=== PATIENT | female | born 1955 | race Caucasian/White ===

== ENCOUNTER 2016-09-29 12:39 | Emergency (ER) | payer OTHER ==
[~2016-09-29] VITALS: Ht 162.6 cm; Wt 66.0 kg
[~2016-09-29 12:39] MED LIST: ACET325T45 PO; AMLO-147 PO; AMOX1TAB10 PO; BENA20TA48 PO; CLON0.5T4 PO; FOLI-49 PO; HYDR200T39 PO; IBUP-1542 PO; LEFL20TA PO; OMEP40CA6 PO
[2016-09-29 12:51] VITALS: Ht 162.6 cm; Wt 66.0 kg
[2016-09-29 15:46] LABS: BASOPHILS % 0.7 % (0.0-2.0); EOSINOPHILS # 0.2 10^3/ul (0.0-0.5); EOSINOPHILS % 4.3 % (0.0-7.0); HEMATOCRIT 34.8 % (37.0-47.0); HEMOGLOBIN 11.6 g/dl (12.0-16.0); LYMPHOCYTES # 1.4 10^3/ul (0.8-2.9); LYMPHOCYTES % 26.6 % (15.0-51.0); MEAN CORPUSCULAR HEMOGLOBIN 30.7 pg (29.0-33.0); MEAN CORPUSCULAR HGB CONC 33.5 g/dl (32.0-37.0); MEAN CORPUSCULAR VOLUME 91.5 fl (82.0-101.0); MEAN PLATELET VOLUME 8.7 fl (7.4-10.4); MONOCYTE # 0.5 10^3/ul (0.3-0.9); MONOCYTES % 10.7 % (0.0-11.0); NEUTROPHIL # 2.9 10^3/ul (1.6-7.5); NEUTROPHILS % 57.7 % (39.0-77.0); PLATELET COUNT 261 10^3/UL (140-440); RED CELL DISTRIBUTION WIDTH 14.1 % (11.5-14.5); UNCORRECTED WBC 5.1 10^3/ul (4.8-10.8); WHITE BLOOD COUNT 5.1 10^3/ul (4.8-10.8)
[2016-09-29 15:47] LABS: CONDITION 1
[2016-09-29 15:51] LABS: INR 0.92; PARTIAL THROMBOPLASTIN TIME 28.2 Sec (25.0-35.0); PROTIME 12.4 Sec (12.2-14.2)
[2016-09-29 15:53] LABS: ALBUMIN 4.3 g/dl (3.3-4.9); POTASSIUM 4.6 mmol/L (3.5-5.1)
[2016-09-29 15:55] LABS: CREATININE 0.59 mg/dl (0.44-1.00)
[2016-09-29 15:56] LABS: ALBUMIN/GLOBULIN RATIO 1.1; BILIRUBIN,INDIRECT 0.2 mg/dl (0-1.1); BILIRUBIN,TOTAL 0.2 mg/dl (0.2-1.3); TOTAL PROTEIN 8.2 g/dl (6.1-8.1)
[2016-09-29] MEDS ORDERED: IBUP400T22 PO (17:46)
[2016-09-29 18:12] VITALS: BP 123/65; PULSE 79; RESP 18; TEMP 98.3
--- NOTE | 2016-09-30 20:22 | ERD ---
ER Documentation Chief Complaint Date/Time DATE: 09/30/16 TIME: 20:10 Chief Complaint SORE THROAT,RIGHT ARMPIT BRUISE HPI This is a 60 year old female presenting to ER for sore throat and nasal congestion x 2 days. Patient states she has pain with swallowing. No difficulty swallowing, muffled voice or drooling. No wheezing. No earache, headache, chest pain, difficulty breathing or shortness of breath. Patient also presents with chronic rash. Patient has lesions to right armpit, left palm , mid-forehead and chin. Patient stats the lesions are itchy in nature and non- painful. No weeping or drainage. Lesions have been present for 10 years. Patient has history of Rheumatoid arthritis and recently started on Enbrel 2 months ago. ROS All systems reviewed and are negative except as per history of present illness. Medications Home Meds Active Scripts Ibuprofen* (Motrin*) 400 Mg Tab, 400 MG PO Q6, #10 TAB Prov:SULAIMAN CALVERT RN LPN CNA 09/29/16 Ibuprofen* (Motrin*) 600 Mg Tab, 600 MG PO Q8 for 4 Days, #30 TAB Prov:AMRIK SANTAAN, RN LPN CNA 07/23/16 Reported Medications Omeprazole* (Omeprazole*) 40 Mg Capsule.dr, 40 MG PO DAILY, #30 CAP 02/10/16 Leflunomide* (Arava*) 20 Mg Tablet, 20 MG PO DAILY, TAB 02/10/16 Amox Tr/Potassium Clavulanate (Amox Tr-K Clv 875-125 Mg Tab) 1 Tab Tablet, 1 TAB PO BID, #20 TAB PT STARTED ON 02-08-16 02/10/16 Folic Acid* (Folic Acid*) 1 Mg Tablet, 1 MG PO DAILY, TAB 02/10/16 Hydroxychloroquine Sulfate* (Hydroxychloroquine Sulfate*) 200 Mg Tablet, 200 MG PO BID, TAB 02/10/16 Acetaminophen* (Acetaminophen*) 325 Mg Tablet, 325 MG PO Q4H Y for PAIN AND OR ELEVATED TEMP, #30 TAB 02/10/16 Clonazepam* (Clonazepam*) 0.5 Mg Tablet, 0.5 MG PO QHS, TAB 02/10/16 Benazepril Hcl* (Benazepril Hcl*) 20 Mg Tablet, 20 MG PO QAM, #30 TAB 02/10/16 Amlodipine Besylate* (Amlodipine Besylate*) 10 Mg Tablet, 10 MG PO QPM, #30 TAB 02/10/16 Allergies Allergies: Coded Allergies: No Known Allergy (Unverified , 08/15/15) PMhx/Soc History of Surgery: Yes (HYSTERECTOMY, CHOLECYSTECTOMY) Anesthesia Reaction: No Hx Neurological Disorder: No Hx Respiratory Disorders: No Hx Cardiac Disorders: Yes (HTN) Hx Psychiatric Problems: No Hx Miscellaneous Medical Probl: Yes (BORDERLINE ANEMIC) Hx Alcohol Use: No Hx Substance Use: No Hx Tobacco Use: No Smoking Status: Never smoker Physical Exam Vitals Vital Signs Date Time Temp Pulse Resp B/P Pulse Ox O2 Delivery O2 Flow Rate FiO2 09/29/16 18:12 98.3 79 18 123/65 98 Room Air 09/29/16 12:51 98.3 78 18 130/67 98 Physical Exam Const: NAD, alert Head: Atraumatic Eyes: Normal Conjunctiva ENT: Normal External Ears, Nose and Mouth. No erythema or exudate to posterior pharynx. TMs normal bilaterally. Neck: Full range of motion..~ No meningismus. No lymphadenopathy Resp: Clear to auscultation bilaterally. No wheezing, rhonchi or crackles. Cardio: Regular rate and rhythm, no murmurs Abd: Soft, non tender, non distended. Normal bowel sounds Skin: There are dark purple and erythematous lesions on the forehead, 1 dark purple erythematous site on the left palm as well as under her right axilla. No petechiae, no purpura, no vesicle formation, no induration, no surrounding erythema, no purulent discharge. Back: No midline or flank tenderness Ext: No cyanosis, or edema Neur: Awake and alert Psych: Normal Mood and Affect Result Diagram: 09/29/16 1525 09/29/16 1525 Results 24 hrs Laboratory Tests Test 09/29/16 15:25 Activated Partial Thromboplast Time 28.2Sec Alanine Aminotransferase (ALT/SGPT) 25IU/L Albumin 4.3g/dl Albumin/Globulin Ratio 1.10 Alkaline Phosphatase 104IU/L Anion Gap 18 Aspartate Amino Transf (AST/SGOT) 27IU/L Basophils # 0.010^3/ul Basophils % 0.7% Blood Urea Nitrogen 14mg/dl Calcium Level 9.0mg/dl Carbon Dioxide Level 28mmol/L Chloride Level 103mmol/L Creatinine 0.59mg/dl Direct Bilirubin 0.00mg/dl Eosinophils # 0.210^3/ul Eosinophils % 4.3% Globulin 3.90g/dl Glucose Level 82mg/dl Hematocrit 34.8% Hemoglobin 11.6g/dl INR International Normalized Ratio 0.92 Indirect Bilirubin 0.2mg/dl Lymphocytes # 1.410^3/ul Lymphocytes % 26.6% Mean Corpuscular Hemoglobin 30.7pg Mean Corpuscular Hemoglobin Concent 33.5g/dl Mean Corpuscular Volume 91.5fl Mean Platelet Volume 8.7fl Monocytes # 0.510^3/ul Monocytes % 10.7% Neutrophils # 2.910^3/ul Neutrophils % 57.7% Nucleated Red Blood Cells # 0.010^3/ul Nucleated Red Blood Cells % 0.0/100WBC Platelet Count 78755^3/UL Potassium Level 4.6mmol/L Prothrombin Time 12.4Sec Prothrombin Time Ratio 1.0 Red Blood Count 3.8010^6/ul Red Cell Distribution Width 14.1% Sodium Level 144mmol/L Total Bilirubin 0.2mg/dl Total Protein 8.2g/dl White Blood Count 5.110^3/ul Procedures/MDM ED course Patient was stable throughout ED course and informed of any lab results. Laboratory CBC no severe bacteremia or anemia. CMP no severe electrolyte abnormality INR 0.92 PT 12,4 PTT 28.2 MDM: 60 year old female presents to ER for sore throat x 2 days and chronic rash x 10 years. Patient states she has pain with swallowing. No signs of difficulty swallowing or respiratory distress. Normal vital signs. Labs are unremarkable. Low suspicion for DIC or ITP. Low suspicion for hemorrhage or severe anemia. This is a chronic rash per patient and she has a history of rheumatoid arthritis so rash is likely rheumatologic in nature. Patient is stable and appropriate for outpatient management. Patient will be discharged with prescription for ibuprofen. 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 Return to ED for any new or worsening symptoms. Patient verbalizes understanding. All questions answered at discharge. Departure Diagnosis: Primary Impression: Sore throat Additional Impression: Dermatitis Condition: Stable Patient Instructions: Self-Care for Sore Throats Referrals: ROBERT QUEZADA MD (PCP) [facility] YOU HAVE RECEIVED A MEDICAL SCREENING EXAM AND THE RESULTS INDICATE THAT YOU DO NOT HAVE A CONDITION THAT REQUIRES URGENT TREATMENT IN THE EMERGENCY DEPARTMENT. FURTHER EVALUATION AND TREATMENT OF YOUR CONDITION CAN WAIT UNTIL YOU ARE SEEN IN YOUR DOCTORS OFFICE WITHIN THE NEXT 1-2 DAYS. IT IS YOUR RESPONSIBILITY TO MAKE AN APPOINTMENT FOR FOLOW-UP CARE. IF YOU HAVE A PRIMARY DOCTOR --you should call your primary doctor and schedule an appointment IF YOU DO NOT HAVE A PRIMARY DOCTOR YOU CAN CALL OUR PHYSICIAN REFERRAL HOTLINE AT IF YOU CAN NOT AFFORD TO SEE A PHYSICIAN YOU CAN CHOSE FROM THE FOLLOWING [facility] [address] [facility]. [facility] [address]. [facility] [address] [facility] [address] [facility] [address] [facility]. [facility] [address] [facility]. [facility] YOU HAVE RECEIVED A MEDICAL SCREENING EXAM AND THE RESULTS INDICATE THAT YOU DO NOT HAVE A CONDITION THAT REQUIRES URGENT TREATMENT IN THE EMERGENCY DEPARTMENT. FURTHER EVALUATION AND TREATMENT OF YOUR CONDITION CAN WAIT UNTIL YOU ARE SEEN IN YOUR DOCTORS OFFICE WITHIN THE NEXT 1-2 DAYS. IT IS YOUR RESPONSIBILITY TO MAKE AN APPOINTMENT FOR FOLOW-UP CARE. IF YOU HAVE A PRIMARY DOCTOR --you should call your primary doctor and schedule and appointment IF YOU DO NOT HAVE A PRIMARY DOCTOR YOU CAN CALL OUR PHYSICIAN REFERRAL HOTLINE AT . IF YOU CAN NOT AFFORD TO SEE A PHYSICIAN YOU CAN CHOSE FROM THE FOLLOWING [facility], [facility] INSTITUTIONS: [facility] [address] [place] [address] [facility] [address] [place] [address] [facility] [place] [address] [place] [address] Additional Instructions: Call your primary care doctor TOMORROW for an appointment during the next 2-3 days.See the doctor sooner or return here if your condition worsens before your appointment time. Return to ED for any high fever, chest pain, difficulty breathing, shortness breath, wheezing, vomiting, diarrhea, abdominal pain or any new or worsening symptoms. SULAIMAN CALVERT NP Sep 30, 2016 20:22
== END 2016-09-29 18:14 | disposition home or self-care (01) ==
LOC: FTE 12:39
DX: J02.9 Acute pharyngitis, unspecified (principal); L25.9 Unspecified contact dermatitis, unspecified cause; I10 Essential (primary) hypertension
CPT/HCPCS: 80053; 85025; 85610; 85730; Z7502; 99283

== ENCOUNTER 2017-06-25 13:03 | Emergency (ER) | END 2017-06-25 18:32 | disposition home or self-care (01) | DX: M79.605 Pain in left leg (principal); M79.604 Pain in right leg; M15.9 Polyosteoarthritis, unspecified; I10 Essential (primary) hypertension | CPT/HCPCS: 96372; J1885; Z7502 ==

== ENCOUNTER 2017-07-01 15:19 | Emergency (ER) | payer OTHER ==
[~2017-07-01] VITALS: Ht 160 cm; Wt 64.0 kg
[~2017-07-01 15:19] MED LIST changes: +IBUP400T22 PO; +NAPR-260 PO
[2017-07-01 15:44] VITALS: Ht 160 cm; Wt 64.0 kg
[2017-07-01] MEDS ORDERED: MECLIZINE 12.5 MG TAB PO ONE (17:30)
--- NOTE | 2017-07-01 17:44 | RADRPT ---
PROCEDURE: CT Brain without contrast. CLINICAL INDICATION: Dizziness, left ear pain TECHNIQUE: Routine CT scan of the brain was performed on a high resolution multi detector scanner without intravenous contrast. One or more of the following dose reduction techniques were used: Auto mated exposure control; Adjustment of the mA and/or kV according to patient size; Use of iterative r econstruction technique. CTDI = 40 mGy. DLP = 768 mGy-cm. COMPARISON: CT brain 02/10/2016 FINDINGS: Hemorrhage: No evidence of intracranial hemorrhage. Acute ischemic changes: No evidence of acute ischemic changes. Mass effect: None. Parenchymal volume: Within normal limits for age. Ventricular system: Concordant with parenchymal volume. Chronic changes: Parenchymal attenuation is within normal limits. Atherosclerotic calcifications of the cavernous portions of both internal carotid arteries are present. Extracranial soft tissues: Unremarkable. Calvarium: No fractures. Paranasal sinuses: Visualized paranasal sinuses are clear. Mastoid air cells: Visualized mastoid air cells are clear. IMPRESSION: No acute intracranial abnormalities. Normal appearance of the brain parenchyma. No soft tissue abnormalities are seen. RPTAT: AADD .Travis Salamanca MD, MD Date Time Electronically viewed and signed by .Travis Salamanca MD, on 07/01/2017 17:44 .B/
[2017-07-01] MEDS ORDERED: MECL12.574 PO (17:52)
--- NOTE | 2017-07-01 18:21 | ERD ---
ER Documentation Chief Complaint Date/Time DATE: 07/01/17 TIME: 18:12 Chief Complaint CAME IN VIA INTAKE DUE TO LEFT EAR FULLNESS WITH DIZZINESS HPI Patient is a 60-year-old female with a past medical history of vertigo, hypertension and osteoarthritis who presents emergency department for concerns of left ear fullness and dizziness. Patient states her ear fullness started 2 weeks ago. Patient states she saw her primary care physician who diagnosed her with an ear infection and gave her prescription for amoxicillin. She states she continues to have symptoms. Patient states this morning she started to feel dizzy. Patient states with standing up and moving her head fast she feels dizziness. Patient denies any dizziness at rest. Dizziness is episodic in nature. Patient does report room spinning sensation. Patient denies any headache, blurry vision, dysphasia, dysphonia, nausea, vomiting, chest pain, shortness of breath, abdominal pain, unilateral weakness or loss of consciousness. ROS All systems reviewed and are negative except as per history of present illness. Medications Home Meds Active Scripts Meclizine Hcl* (Antivert*) 12.5 Mg Tab, 12.5 MG PO Q6H Y for DIZZINESS, #20 TAB Prov:AISHWARYA ROBLEDO PA-C 07/01/17 Naproxen* (Naprosyn*) 500 Mg Tablet, 500 MG PO BID Y for PAIN AND/OR INFLAMMATION, #20 TAB Prov:AISHWARYA ROBLEDO PA-C 06/25/17 Ibuprofen* (Motrin*) 400 Mg Tab, 400 MG PO Q6, #10 TAB Prov:SULAIMAN CALVERT BPM DEVELOPER 09/29/16 Ibuprofen* (Motrin*) 600 Mg Tab, 600 MG PO Q8 for 4 Days, #30 TAB Prov:AMRIK SANTANA, BPM DEVELOPER 07/23/16 Reported Medications Omeprazole* (Omeprazole*) 40 Mg Capsule.dr, 40 MG PO DAILY, #30 CAP 02/10/16 Leflunomide* (Arava*) 20 Mg Tablet, 20 MG PO DAILY, TAB 02/10/16 Amox Tr/Potassium Clavulanate (Amox Tr-K Clv 875-125 Mg Tab) 1 Tab Tablet, 1 TAB PO BID, #20 TAB PT STARTED ON 02-07-02/10/16 Folic Acid* (Folic Acid*) 1 Mg Tablet, 1 MG PO DAILY, TAB 02/10/16 Hydroxychloroquine Sulfate* (Hydroxychloroquine Sulfate*) 200 Mg Tablet, 200 MG PO BID, TAB 02/10/16 Acetaminophen* (Acetaminophen*) 325 Mg Tablet, 325 MG PO Q4H Y for PAIN AND OR ELEVATED TEMP, #30 TAB 02/10/16 Clonazepam* (Clonazepam*) 0.5 Mg Tablet, 0.5 MG PO QHS, TAB 02/10/16 Benazepril Hcl* (Benazepril Hcl*) 20 Mg Tablet, 20 MG PO QAM, #30 TAB 02/10/16 Amlodipine Besylate* (Amlodipine Besylate*) 10 Mg Tablet, 10 MG PO QPM, #30 TAB 02/10/16 Allergies Allergies: Coded Allergies: sulfamethoxazole (Verified Allergy, Mild, 07/01/17) trimethoprim (Verified Allergy, Mild, 07/01/17) PMhx/Soc History of Surgery: Yes (HYSTERECTOMY, CHOLECYSTECTOMY) Anesthesia Reaction: No Hx Neurological Disorder: No Hx Respiratory Disorders: No Hx Cardiac Disorders: Yes (HTN) Hx Psychiatric Problems: No Hx Miscellaneous Medical Probl: Yes (BORDERLINE ANEMIC; ARTHRITIS) Hx Alcohol Use: No Hx Substance Use: No Hx Tobacco Use: No Smoking Status: Never smoker Physical Exam Vitals Vital Signs Date Time Temp Pulse Resp B/P Pulse Ox O2 Delivery O2 Flow Rate FiO2 07/01/17 15:44 99.1 73 18 135/75 98 Physical Exam GENERAL: Well-developed, well-nourished female. Appears in no acute distress. Speaking in full sentences. HEAD: Normocephalic, atraumatic. No deformities or ecchymosis. EYE: Pupils equal, round, and reactive to light. EOMs intact. No conjunctival erythema. No eye discharge. ENT: External ear without any masses or tenderness. Auditory canals clear bilaterally. TM visualized bilaterally, non-erythematous, non-bulging. Nasal mucosa pink with no discharge. Oropharynx is pink without any tonsillar erythema or exudates. No uvula deviation. No kissing tonsils. NECK: Supple. No meningismus. Normal ROM of the neck. LUNG: Clear to auscultation bilaterally. No rhonchi, wheezing, rales or coarse breath sounds. HEART: Regular rate and rhythm. No murmurs, rubs or gallops. BACK: No midline tenderness. EXTREMITIES: Equal pulses bilaterally. No peripheral clubbing, cyanosis or edema. No unilateral leg swelling. NEUROLOGIC: Alert and oriented x3, cooperative. Mood and affect appropriate to situation. Cranial nerves II through XII are grossly intact. Normal speech. Motor exam: 5/5 strength in upper and lower extremities. Sensory exam: Sensation intact to light touch on all four extremities. Cerebellar function exam:. No dysmetria on [id number] test. Steady gait. No pronator drift. SKIN: Normal color. Warm and dry. No rashes or lesions. Results 24 hrs Current Medications Medications (Trade) Dose Ordered Sig/Alan Route PRN Reason Start Time Stop Time Status Last Admin Dose Admin Meclizine HCl (Antivert) 12.5 mg ONCE ONCE PO 07/01/17 17:30 07/01/17 17:31 DC 07/01/17 17:18 Procedures/MDM ED COURSE: The patient was stable throughout ED course. I kept the patient and/or family informed of laboratory and diagnostic imaging results throughout the ED course. DIAGNOSTIC IMAGING: Read by radiologist. Patient: KATHYA DENSON : 1955 Age: 61 Sex: F MR #: [id number] DOS: 07/01/17 1707 Ordering MD: AISHWARYA ROBLEDO PA-C Location: E Room/Bed: PROCEDURE: CT Brain without contrast. CLINICAL INDICATION: Dizziness, left ear pain TECHNIQUE: Routine CT scan of the brain was performed on a high resolution multi detector scanner without intravenous contrast. One or more of the following dose reduction techniques were used: Automated exposure control; Adjustment of the mA and/or kV according to patient size; Use of iterative reconstruction technique. CTDI = 40 mGy. DLP = 768 mGy-cm. COMPARISON: CT brain 02/10/2016 FINDINGS: Hemorrhage: No evidence of intracranial hemorrhage. Acute ischemic changes: No evidence of acute ischemic changes. Mass effect: None. Parenchymal volume: Within normal limits for age. Ventricular system: Concordant with parenchymal volume. Chronic changes: Parenchymal attenuation is within normal limits. Atherosclerotic calcifications of the cavernous portions of both internal carotid arteries are present. Extracranial soft tissues: Unremarkable. Calvarium: No fractures. Paranasal sinuses: Visualized paranasal sinuses are clear. Mastoid air cells: Visualized mastoid air cells are clear. IMPRESSION: No acute intracranial abnormalities. Normal appearance of the brain parenchyma. No soft tissue abnormalities are seen. RPTAT: AADD .Travis Salamanca MD, MD Date Time Electronically viewed and signed by .Travis Salamanca MD, MD on 07/01/2017 17:44 .B/ CC: AISHWARYA ROBLEDO PA-C MEDICATIONS GIVEN: Meclizine Patient tolerated medication well with no adverse reactions. Patient reported improvement in pain. MEDICAL DECISION MAKING: This is a 61-year-old female who presents with left ear fullness and dizziness. Patient has left ear fullness is present for the last 2 weeks. Patient states she developed dizziness started this morning. Patient states she has room spinning sensation. Patient states that the dizziness is worse with standing up and moving her head. Patient states that the dizziness is episodic lasting less than 1 minute. Vital signs were reviewed. The patient denied hearing loss, diplopia or dysphagia. Full neuro exam was normal. CT brain showed no acute intracranial abnormalities. Given these findings, the patient's presentation is most consistent with benign paroxysmal positional vertigo. Unable to rule out any inner ear pathology. Patient advised to follow-up with an ENT specialist on an outpatient basis. Referral information provided. I have a much lower clinical concern for intracranial hemorrhage, CVA, intracranial mass, multiple sclerosis, ear foreign body, acute otitis media. PRESCRIPTIONS: Meclizine DISCHARGE: At this time, patient is stable for discharge and outpatient management. She was given a copy of all imaging studies obtained today. I have instructed the patient to follow-up with his/her primary care physician in 1-2 days. If symptoms persist, patient may need to see a specialist for further examinations and testing. I have instructed the patient to promptly return to the ER at any time for any new or worsening symptoms including increased increased pain, fever , nausea, vomiting, numbness, weakness, slurred speech, LOC. The patient and/or family expressed understanding of and agreement with this plan. All questions were answered. Home care instructions were provided. Disclaimer: Inadvertent spelling and grammatical errors are likely due to EHR/ dictation software use and do not reflect on the overall quality of patient care. Also, please note that the electronic time recorded on this note does not necessarily reflect the actual time of the patient encounter. Departure Diagnosis: Primary Impression: Vertigo Additional Impression: Left ear pain Condition: Stable Patient Instructions: Inner Ear Problems: Causes of Dizziness (Vertigo) Referrals: KAMI GUERRERO MD,TETO VILLALTA,ALFREDA CONNER,[facility] YOU HAVE RECEIVED A MEDICAL SCREENING EXAM AND THE RESULTS INDICATE THAT YOU DO NOT HAVE A CONDITION THAT REQUIRES URGENT TREATMENT IN THE EMERGENCY DEPARTMENT. FURTHER EVALUATION AND TREATMENT OF YOUR CONDITION CAN WAIT UNTIL YOU ARE SEEN IN YOUR DOCTORS OFFICE WITHIN THE NEXT 1-2 DAYS. IT IS YOUR RESPONSIBILITY TO MAKE AN APPOINTMENT FOR FOLOW-UP CARE. IF YOU HAVE A PRIMARY DOCTOR --you should call your primary doctor and schedule an appointment IF YOU DO NOT HAVE A PRIMARY DOCTOR YOU CAN CALL OUR PHYSICIAN REFERRAL HOTLINE AT IF YOU CAN NOT AFFORD TO SEE A PHYSICIAN YOU CAN CHOSE FROM THE FOLLOWING [facility] [address] [facility]. [facility] [address] [facility] [address] [facility]. [facility] [address] [facility]. [facility] [address] [facility]. [facility]. [address] [facility] YOU HAVE RECEIVED A MEDICAL SCREENING EXAM AND THE RESULTS INDICATE THAT YOU DO NOT HAVE A CONDITION THAT REQUIRES URGENT TREATMENT IN THE EMERGENCY DEPARTMENT. FURTHER EVALUATION AND TREATMENT OF YOUR CONDITION CAN WAIT UNTIL YOU ARE SEEN IN YOUR DOCTORS OFFICE WITHIN THE NEXT 1-2 DAYS. IT IS YOUR RESPONSIBILITY TO MAKE AN APPOINTMENT FOR FOLOW-UP CARE. IF YOU HAVE A PRIMARY DOCTOR --you should call your primary doctor and schedule and appointment IF YOU DO NOT HAVE A PRIMARY DOCTOR YOU CAN CALL OUR PHYSICIAN REFERRAL HOTLINE AT . IF YOU CAN NOT AFFORD TO SEE A PHYSICIAN YOU CAN CHOSE FROM THE FOLLOWING [facility] INSTITUTIONS: [facility] [address] [place] [address] [facility] [address] [place] [address] [facility] [address] [place] [address] Additional Instructions: Call your primary care doctor TOMORROW for an appointment during the next 1-2 days.See the doctor sooner or return here if your condition worsens before your appointment time. Follow-up with an ENT specialist on an outpatient basis. See referral information. AISHWARYA ROBLEDO PA-C Jul 01, 2017 18:21
[2017-07-01 18:33] VITALS: BP 156/77; PULSE 64; RESP 15; TEMP 98
== END 2017-07-01 18:32 | disposition home or self-care (01) ==
LOC: FTE 15:19
DX: R42 Dizziness and giddiness (principal); H92.02 Otalgia, left ear; I10 Essential (primary) hypertension
CPT/HCPCS: 70450; Z7502; Z7610

== ENCOUNTER → 2017-10-28 | Outpatient (CLI) | END | disposition home or self-care (01) ==

== ENCOUNTER → 2017-11-11 | Outpatient (CLI) | END | disposition home or self-care (01) ==

== ENCOUNTER → 2018-04-29 | Outpatient (CLI) | END | disposition home or self-care (01) ==